=== PATIENT | male | born 1950 | race Two or more races ===

== ENCOUNTER 2019-08-10 06:07 | Inpatient (IN) | payer OTHER, MEDICARE ==
[2019-08-10] VITALS (52 sets, daily range): BP systolic 75–136; BP diastolic 46–76
[~2019-08-10] VITALS: Ht 172.7 cm; Wt 65.3 kg
[~2019-08-10 06:07] MED LIST: ETOMIDATE 2MG/ML 10ML VIAL IV ONE; SUCCINYLCHOLINE CHLORIDE 200MG/10ML IV ONE
[2019-08-10] MEDS ORDERED: IPRATROPIUM BROMIDE (0.02%) 0.5MG/2.5ML NEB HHN STA (06:23)
[2019-08-10] MEDS ORDERED: ALBUTEROL (0.083%) 2.5MG/3ML NEB HHN STA (06:23)
[2019-08-10] MEDS ORDERED: PROPOFOL 10MG/ML 100ML 100 ML IV ONE ×2 (06:29→06:30)
[2019-08-10] MEDS ORDERED: MAGNESIUM 2 G PREMIX 50 ML IV ONE (06:30)
[2019-08-10] MEDS ORDERED: METHYLPREDNISOLONE SOD SUCC 125 MG/2 ML VIAL IV ONE (06:30)
[2019-08-10] MEDS ORDERED: LEVOFLOXACIN 500MG PREMIX 100 ML IV ONE (06:30)
[2019-08-10] MEDS ORDERED: SUCCINYLCHOLINE CHLORIDE 200MG/10ML IV ONE (06:30)
[2019-08-10] MEDS ORDERED: LORAZEPAM 2MG/ML CPJ IV ONE (06:45)
[2019-08-10] MEDS ORDERED: DEXT 5%/LACTATED RINGERS 1,000 ML IV SCH (07:42)
[2019-08-10] MEDS ORDERED: LORAZEPAM 2MG/ML CPJ IV PRN (07:45)
[2019-08-10] MEDS ORDERED: ONDANSETRON HCL 4MG/2ML INJ IV PRN (07:45)
[2019-08-10] MEDS ORDERED: GUAIFENESIN 200MG/10ML SUGAR FREE UDC PO PRN (07:45)
[2019-08-10] MEDS ORDERED: DOCUSATE SODIUM 100MG CAPSULE PO PRN (07:45)
[2019-08-10] MEDS ORDERED: DIPHENHYDRAMINE 50MG/ML VIAL IV PRN (07:45)
[2019-08-10] MEDS ORDERED: NA PHOS,M-B/NA PHOS,DI-BA ENEMA 118ML PR PRN (07:45)
[2019-08-10] MEDS ORDERED: CLONIDINE 0.1MG TABLET PO PRN (07:45)
[2019-08-10] MEDS ORDERED: MAGNESIUM/ALUMINUM HYDROXIDE/SIMETHICONE 30ML UDC PO PRN (07:45)
[2019-08-10] MEDS ORDERED: MORPHINE SULFATE 2 MG/ML CPJ (NOT FOR IM USE) IV PRN (07:45)
[2019-08-10] MEDS ORDERED: ACETAMINOPHEN 325MG TABLET PO PRN (07:45)
[2019-08-10] MEDS ORDERED: MIDAZOLAM HCL 2 MG/2 ML VIAL IV ONE (08:00)
[2019-08-10] MEDS ORDERED: MIDAZOLAM HCL 50 MG in DEXTROSE 5% WATER 40 ML IV ONE (08:00)
[2019-08-10 08:08] LABS: BASOPHILS % 0.4 % (0.0-2.0); EOSINOPHILS % 0.5 % (0.0-5.0); HEMATOCRIT. 39.4 % (42.0-52.0); HEMOGLOBIN. 13.5 g/dL (14.0-18.0); LYMPHOCYTES % 9.1 % (20.0-50.0); MEAN PLATELET VOLUME 8.2 fl (7.4-10.4); PLATELET 286 x1000/uL (130-400); RED BLOOD CELL COUNT 4.64 mill/uL (4.7-6.1)
[2019-08-10 08:10] LABS: BG BASE EXCESS -1.7 mmol/L (-2.0-2.0); BG CARBOXYHEMOGLOBIN 0.7 % (0.5-1.5); BG DEOXYHEMOGLOBIN 0.9 % (0.0-5.0); BG FRACTION INSPIRED OXYGEN 100; BG HCO3 ACT 24.9 mmol/L (22.0-26.0); BG METHEMOGLOBIN 0.5 % (0.0-1.5); BG OXYGEN SATURATION 99.1 % (92.0-98.5); BG OXYHEMOGLOBIN 97.9 % (94.0-97.0); BG PCO2 50.1 mmHg (35.0-45.0); BG PH 7.315 (7.350-7.450); BG PO2 256.7 mmHg (75.0-100.0); BG SAMPLE SITE RIGHT RADIAL; BG TIDAL VOLUME(mL) 450 mL; BG TOTAL HEMOGLOBIN 13.3 g/dL (12.0-18.0); BG VENT MODE VENT - A/C; BG VENT RATE 18 set
[2019-08-10 08:15] LABS: INR 1.1; PROTHROMBIN TIME 11.6 sec (9.6-11.0)
[2019-08-10 08:17] LABS: CHLORIDE 105 mEq/L (98-107)
[2019-08-10 08:24] LABS: LDL CHOLESTEROL 85 mg/dL (5-100)
[2019-08-10 08:25] LABS: HDL CHOLESTEROL 37 mg/dL (40-59)
[2019-08-10] MEDS ORDERED: MIDAZOLAM HCL 50 MG in DEXTROSE 5% WATER 40 ML IV NR (08:30)
[2019-08-10] MEDS ORDERED: PANTOPRAZOLE SODIUM 40 MG/VIAL IV SCH (09:00)
[2019-08-10] MEDS ORDERED: ASPIRIN 325MG EC TABLET PO SCH (09:00)
[2019-08-10] MEDS ORDERED: ENOXAPARIN 40MG/0.4ML SYR SUBCUT SCH (10:00)
[2019-08-10] MEDS ORDERED: IPRATROPIUM/ALBUTEROL 0.5-3(2.5)MG/3ML NEB NEB PRN (10:00)
[2019-08-10] MEDS: DEXT 5%/0.9% NACL 1,000 ML IV SCH ×2 (10:28→21:07)
[2019-08-10] MEDS ORDERED: DOBUTAMINE HCL IN DEXTROSE 5 % 250 ML IV SCH (10:45)
[2019-08-10] MEDS: FENTANYL CITRATE/PF 500 MCG in SODIUM CHLORIDE 0.9% 40 ML IV PRN ×2 (10:46→15:05)
[2019-08-10] MEDS: METHYLPREDNISOLONE SOD SUCC 40 MG/ML VIAL IV SCH ×3 (10:48→21:17)
[2019-08-10] MEDS: NITROGLYCERIN 50MG PREMIX 250 ML IV SCH (10:49)
[2019-08-10] MEDS ORDERED: CEFEPIME 1,000 MG in DEXTROSE 5% WATER 50 ML IV SCH (11:00)
[2019-08-10] MEDS ORDERED: DOBUTAMINE HCL 500 MG in DEXT 5% WATER 210 ML IV PRN (11:00)
[2019-08-10] MEDS: METRONIDAZOLE 500 MG PREMIX 100 ML IV SCH ×2 (11:13→21:06)
[2019-08-10] MEDS: AZITHROMYCIN 500 MG in DEXT 5% WATER 250 ML IV SCH (11:13)
[2019-08-10] MEDS ORDERED: ASPIRIN 300MG SUPP PR SCH (11:30)
[2019-08-10] MEDS ORDERED: CEFTRIAXONE 1 G PREMIX 50 ML IV SCH (11:30)
[2019-08-10] MEDS ORDERED: SODIUM CHLORIDE 10% FOR INH 15ML VIAL NEB INH SCH (11:30)
[2019-08-10] MEDS: MIDAZOLAM HCL 100 MG in DEXT 5% WATER 80 ML IV PRN ×2 (11:52→21:18)
[2019-08-10] MEDS ORDERED: SODIUM CHLORIDE 0.9% 1000ML BAG (SEPSIS BOLUS) IV ONE (12:30)
[2019-08-10] MEDS ORDERED: SODIUM CHLORIDE 0.9% 500 ML IV ONE ×2 (12:45→16:00)
[2019-08-10] MEDS ORDERED: TIOT18CA3 INH (13:44)
[2019-08-10] MEDS ORDERED: TERA2CAP4 MT (13:44)
[2019-08-10] MEDS ORDERED: ATOR20TA65 MT (13:44)
[2019-08-10] MEDS ORDERED: SILD20TA PO (13:44)
[2019-08-10] MEDS ORDERED: NINT100C PO (13:44)
[2019-08-10] MEDS ORDERED: METHYLPREDNISOLONE SOD SUCC 125 MG/2 ML VIAL IV SCH (14:00)
[2019-08-10 14:16] LABS: BG BASE EXCESS 0.9 mmol/L (-2.0-2.0); BG CARBOXYHEMOGLOBIN 0.2 % (0.5-1.5); BG DEOXYHEMOGLOBIN 2.9 % (0.0-5.0); BG FRACTION INSPIRED OXYGEN 45; BG HCO3 ACT 26.9 mmol/L (22.0-26.0); BG METHEMOGLOBIN 0.3 % (0.0-1.5); BG OXYGEN SATURATION 97.1 % (92.0-98.5); BG OXYHEMOGLOBIN 96.6 % (94.0-97.0); BG PCO2 48.9 mmHg (35.0-45.0); BG PH 7.359 (7.350-7.450); BG PO2 104.4 mmHg (75.0-100.0); BG SAMPLE SITE RIGHT RADIAL; BG TIDAL VOLUME(mL) 450 mL; BG VENT MODE VENT - A/C; BG VENT RATE 26 set
[2019-08-10] MEDS ORDERED: METRONIDAZOLE 500 MG PREMIX 100 ML IV SCH (14:30)
[2019-08-10 15:38] LABS: CLARITY URINE CLOUDY (CLEAR); COLOR URINE DARK YELLOW (YELLOW); KETONES URINE 1+ (NEGATIVE); LEUKOCYTE ESTERASE URINE NEGATIVE (NEGATIVE); NITRITE URINE NEGATIVE (NEGATIVE); OCCULT BLOOD URINE 3+ (NEGATIVE); PROTEIN URINE 2+ (NEGATIVE)
[2019-08-10] MEDS ORDERED: SODIUM CHLORIDE 0.9% 1000ML BAG (SEPSIS BOLUS) IV NR (15:45)
[2019-08-10] MEDS: IPRATROPIUM/ALBUTEROL 0.5-3(2.5)MG/3ML NEB HHN SCH ×2 (16:17→20:17)
[2019-08-10] MEDS: CEFEPIME 1,000 MG in DEXTROSE 5% WATER 50 ML IV SCH (16:44)
[2019-08-10 16:55] LABS: CREATINE KINASE MB FRACTION 4.8 ng/mL (0.5-3.6)
[2019-08-10 19:20] LABS: HEMATOCRIT 34.7 % (42.0-52.0); HEMOGLOBIN 11.6 g/dL (14.0-18.0)
[2019-08-10] MEDS ORDERED: TERAZOSIN HCL 1MG CAPSULE PO SCH (21:00)
[2019-08-10] MEDS: PANTOPRAZOLE 80 MG in SODIUM CHLORIDE 0.9% 100 ML IV SCH (21:07)
[2019-08-10] MEDS: PHENYLEPHRINE 40 MG in DEXT 5% WATER 246 ML IV PRN ×2 (21:08→23:36)
[2019-08-10] MEDS ORDERED: SILDENAFIL CITRATE 20MG TABLET PO SCH (22:00)
[2019-08-10 23:54] LABS: CREATINE KINASE MB FRACTION 4.3 ng/mL (0.5-3.6)
[2019-08-11] VITALS (76 sets, daily range): BP systolic 73–144; BP diastolic 47–90
[2019-08-11] MEDS: IPRATROPIUM/ALBUTEROL 0.5-3(2.5)MG/3ML NEB HHN SCH ×5 (00:13→15:54)
[2019-08-11 00:21] LABS: HEMATOCRIT 34.9 % (42.0-52.0); HEMOGLOBIN 11.7 g/dL (14.0-18.0)
[2019-08-11] MEDS: PHENYLEPHRINE 40 MG in DEXT 5% WATER 246 ML IV PRN ×3 (01:07→18:47)
[2019-08-11] MEDS: FENTANYL CITRATE/PF 500 MCG in SODIUM CHLORIDE 0.9% 40 ML IV PRN ×2 (02:42→14:04)
[2019-08-11] MEDS: METHYLPREDNISOLONE SOD SUCC 40 MG/ML VIAL IV SCH ×3 (05:03→15:51)
[2019-08-11] MEDS: CEFEPIME 1,000 MG in DEXTROSE 5% WATER 50 ML IV SCH (05:04)
[2019-08-11] MEDS: METRONIDAZOLE 500 MG PREMIX 100 ML IV SCH ×2 (05:04→13:59)
[2019-08-11] MEDS: PANTOPRAZOLE 80 MG in SODIUM CHLORIDE 0.9% 100 ML IV SCH (05:06)
[2019-08-11] MEDS: DEXT 5%/0.9% NACL 1,000 ML IV SCH ×2 (05:32→15:51)
[2019-08-11 07:31] LABS: HEMATOCRIT 35.6 % (42.0-52.0); HEMOGLOBIN 11.7 g/dL (14.0-18.0)
[2019-08-11 09:44] LABS: BG BASE EXCESS -1.3 mmol/L (-2.0-2.0); BG CARBOXYHEMOGLOBIN 0.3 % (0.5-1.5); BG DEOXYHEMOGLOBIN 1.8 % (0.0-5.0); BG FRACTION INSPIRED OXYGEN 45; BG HCO3 ACT 25.1 mmol/L (22.0-26.0); BG METHEMOGLOBIN 0.6 % (0.0-1.5); BG OXYGEN SATURATION 98.2 % (92.0-98.5); BG OXYHEMOGLOBIN 97.3 % (94.0-97.0); BG PCO2 49.2 mmHg (35.0-45.0); BG PH 7.326 (7.350-7.450); BG PO2 133.5 mmHg (75.0-100.0); BG SAMPLE SITE RIGHT RADIAL; BG TIDAL VOLUME(mL) 450 mL; BG TOTAL HEMOGLOBIN 12.6 g/dL (12.0-18.0); BG VENT MODE VENT - A/C; BG VENT RATE 26 set
[2019-08-11] MEDS: NITROGLYCERIN 50MG PREMIX 250 ML IV SCH (10:15)
[2019-08-11] MEDS ORDERED: NON FORMULARY PATIENT HOME MED XX SCH (10:15)
[2019-08-11] MEDS ORDERED: PANTOPRAZOLE SODIUM 40 MG/VIAL IV SCH (11:00)
[2019-08-11 11:12] LABS: HEMOGLOBIN. 11.7 g/dL (14.0-18.0); MEAN CORPUSCULAR HEMOGLOBIN 28.6 pg (28.0-32.0); MEAN CORPUSCULAR VOLUME 85.9 fL (80.0-94.0); MEAN PLATELET VOLUME 8.3 fl (7.4-10.4); PLATELET 331 x1000/uL (130-400); RED BLOOD CELL COUNT 4.09 mill/uL (4.7-6.1); RED CELL DISTRIBUTION WIDTH 15.2 % (11.6-14.6)
[2019-08-11 11:14] LABS: HEMATOCRIT. 35.6 % (42.0-52.0)
[2019-08-11 11:16] LABS: CHLORIDE 110 mEq/L (98-107)
[2019-08-11 11:19] LABS: AMYLASE 159 IU/L (25-115)
[2019-08-11] MEDS: MIDAZOLAM HCL 100 MG in DEXT 5% WATER 80 ML IV PRN (11:30)
[2019-08-11] MEDS: AZITHROMYCIN 500 MG in DEXT 5% WATER 250 ML IV SCH (11:59)
[2019-08-11 12:36] LABS: PLATELET ESTIMATE NORMAL
== END 2019-08-11 19:45 | disposition short-term general hospital (02) | DRG 208 ==
LOC: ER 06:07 → CVICU 07:02 → EDBEDREQ 07:05 → EDBEDREQTM 07:05 → ENRESERV 07:15
PROVIDERS: ADMIT Internal Medicine; ATTEND Internal Medicine
PROC: 5A1945Z Respiratory Ventilation, 24-96 Consecutive Hours (ICD-10-PCS; principal; 2019-08-10)
PROC: 0BH17EZ Insertion of Endotracheal Airway into Trachea, Via Natural or Artificial Opening (ICD-10-PCS; 2019-08-10)
DX: J96.01 Acute respiratory failure with hypoxia (principal); G92 Toxic encephalopathy; E43 Unspecified severe protein-calorie malnutrition; J15.1 Pneumonia due to Pseudomonas; J44.1 Chronic obstructive pulmonary disease with (acute) exacerbation; D62 Acute posthemorrhagic anemia; E87.2 Acidosis; K92.2 Gastrointestinal hemorrhage, unspecified; J44.0 Chronic obstructive pulmonary disease with (acute) lower respiratory infection; J84.10 Pulmonary fibrosis, unspecified; R73.9 Hyperglycemia, unspecified; E83.51 Hypocalcemia; E78.1 Pure hyperglyceridemia; I27.29 Other secondary pulmonary hypertension; E87.6 Hypokalemia; E78.5 Hyperlipidemia, unspecified; N40.0 Benign prostatic hyperplasia without lower urinary tract symptoms; I95.9 Hypotension, unspecified; Z68.21 Body mass index [BMI] 21.0-21.9, adult; Z99.81 Dependence on supplemental oxygen; Z87.891 Personal history of nicotine dependence
CPT/HCPCS: 36415; 36600; 71045; 80048; 80061; 81003; 82150; 82375; 82550; 82553; 82805; 83036; 83605; 83880; 84134; 84145; 84484; 85014; 85018; 87070; 93005; 93306; 93970; 94002; 96374; 96375; 99291; C1725; C9113; J0330; J0456; J0692; J0696; J1250; J1650; J1956; J2060; J2250; J2370; J2704; J2920; J2930; J3010; J3475; J3490; J7040; J7042; J7050; J7060; J7131; J7620; A4315